=== PATIENT | male | born 1980 | race African-American/Black ===

== ENCOUNTER 2019-10-24 00:34 | Emergency (ER) | payer OTHER ==
[~2019-10-24] VITALS: Ht 165.1 cm; Wt 64.6 kg
[2019-10-24 01:23] LABS: BASO % 0.4 % (0.0-1.0); EOS # 0.1 10*3/uL (0.0-0.4); EOS % 0.9 % (1.0-4.0); HEMATOCRIT 29.1 % (42.0-52.0); LYMPH # 3.4 10*3/uL (1.3-4.4); LYMPH % 33.4 % (27.0-41.0); MEAN CELL VOLUME 92.7 fl (80.0-94.0); MEAN CORPUSCULAR HGB 27.7 pg (27.0-31.0); MEAN CORPUSCULAR HGB CONC 29.9 g/dl (33.0-37.0); MEAN PLATELET VOLUME 8.8 fl (9.6-12.3); MONO # 0.6 10*3/uL (0.1-1.0); MONO % 5.4 % (3.0-9.0); NEUT # 5.9 10*3/uL (2.3-7.9); NEUT % 58.7 % (47.0-73.0); PLATELET COUNT AUTOMATED 414 10*3/uL (130-400); RED BLOOD COUNT 3.14 10*6/uL (4.50-5.90); RED CELL DISTRI WIDTH 14.7 % (0-14.5); WHITE BLOOD COUNT 10.1 10*3/uL (4.8-10.8)
[2019-10-24 01:33] LABS: ACT PARTIAL THROMBO TIME 23.4 SECONDS (20.0-32.1); INTERNATIONAL NORM RATIO 1.1 (2.0-3.5)
[2019-10-24 01:38] LABS: ALBUMIN 2.7 gm/dl (3.1-4.5); ALKALINE PHOSPHATASE 73 U/L (45-117); BUN 15 mg/dl (7-24); CHLORIDE 108 mmol/L (98-107); CREATININE 1.53 mg/dL (0.70-1.30); POTASSIUM 2.9 mmol/L (3.5-5.1); SGOT/AST 10 IU/L (3-35); SGPT/ALT 15 U/L (12-78); SODIUM 140 mmol/L (136-145); TOTAL PROTEIN 6.1 gm/dL (6.4-8.2)
== END 2019-10-24 01:10 | disposition short-term general hospital (02) ==
LOC: ED 00:34 → EDBD 00:38 → ED 00:38
PROVIDERS: Emergency Medicine Emergency Medical Services; Nurse Practitioner Family
DX: S21.109A Unspecified open wound of unspecified front wall of thorax without penetration into thoracic cavity, initial encounter (principal); W34.00XA Accidental discharge from unspecified firearms or gun, initial encounter; Y93.89 Activity, other specified; Y92.89 Other specified places as the place of occurrence of the external cause; Y99.8 Other external cause status

== ENCOUNTER 2019-12-23 11:36 | Inpatient (IN) | payer OTHER ==
[~2019-12-23] VITALS: Ht 170.2 cm; Wt 55.1 kg
[2019-12-23 12:02] VITALS: BP 131/84
[2019-12-23 14:57] LABS: BASO # 0.1 10*3/uL (0.0-0.1); BASO % 0.5 % (0.0-1.0); EOS # 0.3 10*3/uL (0.0-0.4); EOS % 2.9 % (1.0-4.0); HEMATOCRIT 42.1 % (42.0-52.0); LYMPH # 1.6 10*3/uL (1.3-4.4); LYMPH % 17.2 % (27.0-41.0); MEAN CELL VOLUME 91.7 fl (80.0-94.0); MEAN CORPUSCULAR HGB 27.5 pg (27.0-31.0); MEAN CORPUSCULAR HGB CONC 29.9 g/dl (33.0-37.0); MEAN PLATELET VOLUME 9.5 fl (9.6-12.3); MONO # 0.7 10*3/uL (0.1-1.0); MONO % 6.8 % (3.0-9.0); NEUT # 6.9 10*3/uL (2.3-7.9); NEUT % 72.3 % (47.0-73.0); PLATELET COUNT AUTOMATED 494 10*3/uL (130-400); RED BLOOD COUNT 4.59 10*6/uL (4.50-5.90); WHITE BLOOD COUNT 9.5 10*3/uL (4.8-10.8)
--- NOTE | 2019-12-23 15:06 | NUR ---
REPORT TO NIDIA SALINAS
[2019-12-23 15:15] LABS: URINE AMPHETAMINES < 1000 (1000ng/ml); URINE BARBITURATES < 200 (200ng/ml); URINE BENZODIAZEPINES < 200 (200ng/ml); URINE CANNABINOIDS (THC) < 50 (50ng/ml); URINE COCAINE < 300 (300ng/ml); URINE METHADONE < 300 (300ng/ml); URINE OPIATES < 300 (300ng/ml); URINE PHENCYCLIDINE < 25 (25ng/ml)
[2019-12-23 15:27] LABS: BILIRUBIN NEGATIVE (NEGATIVE); BLOOD NEGATIVE (NEGATIVE); CLARITY CLEAR (CLEAR); COLOR STRAW (YELLOW); GLUCOSE NEGATIVE (NEGATIVE); KETONE NEGATIVE (NEGATIVE); LEUKO ESTERASE NEGATIVE (NEGATIVE); NITRITE NEGATIVE (NEGATIVE); PH 6.5 (5.0-9.0); SPECIFIC GRAVITY 1.005 (1.005-1.030); UROBILINOGEN 0.2 E.U./dl (0.2-1.0)
[2019-12-23 15:28] LABS: EPITHELIAL CELLS 0-2
[2019-12-23 15:28] LABS: ALBUMIN 3.5 gm/dl (3.1-4.5); ALKALINE PHOSPHATASE 96 U/L (45-117); BUN 10 mg/dl (7-24); CHLORIDE 109 mmol/L (98-107); CREATININE 0.77 mg/dL (0.70-1.30); SGOT/AST 30 IU/L (3-35); SGPT/ALT 17 U/L (12-78); SODIUM 140 mmol/L (136-145); TOTAL PROTEIN 7.6 gm/dL (6.4-8.2)
--- NOTE | 2019-12-23 15:30 | NUR ---
PT RESTING IN BED NO SIGN OF DISTRESS
[2019-12-23 15:31] LABS: ACETAMINOPHEN (TYLENOL) < 5.0 ug/ml (10-30)
[2019-12-23 15:32] LABS: ETHYL ALCOHOL < 3.0 mg/dl (<3)
[2019-12-23 20:58] VITALS: BP 96/72
--- NOTE | 2019-12-23 20:58 | NUR ---
Time: 2057 A 39 year old male admitted to under services of MARIELLE TURNER DO. Pt. arrived via stretcher from ER. Chief complaint: opiate withdrawal/substance abuse. KEHINDE MARR
--- NOTE | 2019-12-23 21:20 | NUR ---
PATIENT HAD 1800 DOSE OF SUBUTEX THAT WAS NOT GIVEN IN ER. NOTIFIED PHARMACYJUNIOR TO REORDER SUBUTEX TO START AT 2200
[2019-12-24] VITALS: BP 136/84
--- NOTE | 2019-12-24 04:00 | NUR ---
PATIENT SLEEPING, RESPIRATIONS EASY, NON LABORED. NO SIGNS OF DISTRESS. WILL CONTINUE TO MONITOR.
[2019-12-24 08:00] VITALS: BP 115/73
--- NOTE | 2019-12-24 08:00 | NUR ---
IN TO ROOM. PATIENT ASLEEP BUT AWAKENED EASILY. NO STATED COMPLAINTS AT THIS TIME. DENIES PAIN, ANXIETY AND RESTLESSNESS. RESPIRATIONS ARE EASY AND REGULAR ON ROOM AIR. NO SOB NOTED AT REST. BED IN LOWEST LOCKED POSITION AND CALL LIGHT WITHIN REACH. WILL CONTINUE TO MONITOR.
--- NOTE | 2019-12-24 08:11 | NUR ---
PATIENT MEETSD [facility]. [facility] STAFF WILL FOLLOW UP WITH PATIENT CONCERNING HIS AFTERCARE PLAN. CELY LOTT B.A. TILE AND MARBLE INSTALLER
[2019-12-24 12:00] VITALS: BP 119/76
--- NOTE | 2019-12-24 13:05 | NUR ---
[facility] STAFF IN TO SEE PATIENT. PATIENT IS GOING TO FOLLOW UP WITH [facility] IN [place] FOR OUTPATIENT TREATMENT. CELY LOTT B.A. BOATBUILDER SUPERVISOR
[2019-12-24 16:00] VITALS: BP 116/73
[2019-12-24 20:00] VITALS: BP 115/72
--- NOTE | 2019-12-24 22:43 | NUR ---
PRN TRAZODONE PO GIVEN FOR COMPLAINTS OF INSOMNIA. WILL MONITOR FOR EFFECTIVNESS. CALL LIGHT WITHIH REACH
[2019-12-25] VITALS: BP 109/61
--- NOTE | 2019-12-25 | NUR ---
PATIENT SLEEPING, NO SIGNS OF DISTRESS. WILL CONTINUE TO MONITOR.
[2019-12-25 08:00] VITALS: BP 118/72
[2019-12-25 12:00] VITALS: BP 126/79
[2019-12-25 16:00] VITALS: BP 138/71
--- NOTE | 2019-12-25 17:07 | NUR ---
[facility] staff to see patient to confirm aftercare plan of outpatient treatment upon discharge at [facility]. Reymundo Colón M.A.Ed
--- NOTE | 2019-12-25 19:38 | NUR ---
MEDICATED WITH REQUIP FOR C/O RESTLESS LEGS.
[2019-12-25 20:00] VITALS: BP 106/68
--- NOTE | 2019-12-25 21:20 | NUR ---
MEDICATED WITH VISTARIL FOR C/O ANXIETY, ROBAXIN FOR C/O MUSCLE ACHES & TRAZODONE FOR SLEEP.
[2019-12-26] VITALS: BP 105/56
[2019-12-26 06:29] LABS: BASO # 0.1 10*3/uL (0.0-0.1); BASO % 0.7 % (0.0-1.0); EOS # 0.5 10*3/uL (0.0-0.4); EOS % 5.5 % (1.0-4.0); HEMATOCRIT 40.4 % (42.0-52.0); LYMPH # 2.2 10*3/uL (1.3-4.4); LYMPH % 24.7 % (27.0-41.0); MEAN CELL VOLUME 88.2 fl (80.0-94.0); MEAN CORPUSCULAR HGB 27.3 pg (27.0-31.0); MEAN CORPUSCULAR HGB CONC 30.9 g/dl (33.0-37.0); MONO # 0.9 10*3/uL (0.1-1.0); MONO % 10.5 % (3.0-9.0); NEUT # 5.2 10*3/uL (2.3-7.9); NEUT % 58.3 % (47.0-73.0); PLATELET COUNT AUTOMATED 434 10*3/uL (130-400); RED BLOOD COUNT 4.58 10*6/uL (4.50-5.90); RED CELL DISTRI WIDTH 13.7 % (0-14.5)
[2019-12-26 06:45] LABS: CREATININE 0.89 mg/dL (0.70-1.30)
[2019-12-26 08:00] VITALS: BP 108/61
--- NOTE | 2019-12-26 10:25 | NUR ---
PATIENT MEDICATED WITH PO VISTARIL, ROBAXIN AND REQUIP PER PRN ORDER FOR C/O ANXIETY, MUSCLE ACHES AND RESTLESS LEGS. WILL MONITOR EFFECTIVENESS.
[2019-12-26] MEDS ORDERED: ZOFRAN 4 MG ED2 TAB PO (10:48)
[2019-12-26] MEDS ORDERED: ATARAX,VISTARIL50 MG PO (10:48)
--- NOTE | 2019-12-26 11:25 | NUR ---
EARLIER MEDS EFFECTIVE PER PT. WILL CONTINUE TO MONITOR.
[2019-12-26 12:00] VITALS: BP 110/56
--- NOTE | 2019-12-26 13:22 | NUR ---
Discharge instructions reviewed with patient. Patient receptive and verbalizes understanding. Follow-up care arranged. Written instructions given to patient. LISA CRANDALL
== END 2019-12-26 13:22 | disposition home or self-care (01) | DRG 773 ==
LOC: ED 11:36 → 4E 16:28 → EDHOLD 16:28 → 4E 17:30
PROVIDERS: Physician Assistant; ADMIT Internal Medicine
DX: F11.23 Opioid dependence with withdrawal (principal); D64.9 Anemia, unspecified; D47.3 Essential (hemorrhagic) thrombocythemia; E87.8 Other disorders of electrolyte and fluid balance, not elsewhere classified; F17.210 Nicotine dependence, cigarettes, uncomplicated; Z71.6 Tobacco abuse counseling

== ENCOUNTER 2020-01-07 19:39 | Emergency (ER) | payer OTHER ==
[~2020-01-07] VITALS: Ht 170.1 cm; Wt 68.0 kg
[~2020-01-07 19:39] MED LIST: ATARAX,VISTARIL50 MG PO; ZOFRAN 4 MG ED2 TAB PO
== END 2020-01-07 20:45 | disposition home or self-care (01) ==
LOC: ED 19:39
DX: F11.23 Opioid dependence with withdrawal (principal)

== ENCOUNTER 2020-03-07 17:21 | Emergency (ER) | payer OTHER ==
[~2020-03-07] VITALS: Ht 167.6 cm; Wt 63.5 kg
[2020-03-07 18:04] LABS: BASO # 0.1 10*3/uL (0.0-0.1); BASO % 0.4 % (0.0-1.0); EOS # 0.1 10*3/uL (0.0-0.4); HEMATOCRIT 42.9 % (42.0-52.0); LYMPH # 1.6 10*3/uL (1.3-4.4); LYMPH % 11.9 % (27.0-41.0); MEAN CORPUSCULAR HGB 26.1 pg (27.0-31.0); MEAN CORPUSCULAR HGB CONC 31.5 g/dl (33.0-37.0); MEAN PLATELET VOLUME 8.7 fl (9.6-12.3); MONO # 0.4 10*3/uL (0.1-1.0); MONO % 2.7 % (3.0-9.0); NEUT # 11.5 10*3/uL (2.3-7.9); NEUT % 83.7 % (47.0-73.0); PLATELET COUNT AUTOMATED 407 10*3/uL (130-400); RED BLOOD COUNT 5.17 10*6/uL (4.50-5.90); RED CELL DISTRI WIDTH 15.5 % (0-14.5); WHITE BLOOD COUNT 13.7 10*3/uL (4.8-10.8)
[2020-03-07 18:20] LABS: ALBUMIN 3.6 gm/dl (3.1-4.5); ALKALINE PHOSPHATASE 126 U/L (45-117); BUN 19 mg/dl (7-24); CHLORIDE 107 mmol/L (98-107); CREATININE 1.14 mg/dL (0.70-1.30); ETHYL ALCOHOL < 3.0 mg/dl (<3); POTASSIUM 3.4 mmol/L (3.5-5.1); SGOT/AST 97 IU/L (3-35); SGPT/ALT 183 U/L (12-78); SODIUM 141 mmol/L (136-145); TOTAL PROTEIN 8.4 gm/dL (6.4-8.2)
== END 2020-03-07 18:22 | disposition home or self-care (01) ==
LOC: ED 17:21
PROVIDERS: Emergency Medicine
DX: F11.90 Opioid use, unspecified, uncomplicated (principal)

== ENCOUNTER 2020-03-08 12:08 | Inpatient (IN) | payer OTHER ==
[~2020-03-08] VITALS: Ht 167.6 cm; Wt 59.4 kg
[2020-03-08 12:22] VITALS: BP 123/79
[2020-03-08 12:55] LABS: BILIRUBIN Negative (Negative); BLOOD Negative (Negative); CLARITY Clear (Clear); COLOR Dark Yellow (Yellow); GLUCOSE Negative (Negative); KETONE Negative (Negative); LEUKO ESTERASE Negative (Negative); NITRITE Negative (Negative); SPECIFIC GRAVITY >= 1.030 (1.001-1.030)
[2020-03-08 13:03] LABS: URINE AMPHETAMINES > 1000 (1000ng/ml); URINE BARBITURATES < 200 (200ng/ml); URINE BENZODIAZEPINES > 200 (200ng/ml); URINE CANNABINOIDS (THC) > 50 (50ng/ml); URINE COCAINE > 300 (300ng/ml); URINE METHADONE < 300 (300ng/ml); URINE OPIATES < 300 (300ng/ml)
[2020-03-08 13:04] LABS: URINE PHENCYCLIDINE < 25 (25ng/ml)
[2020-03-08 13:05] LABS: BASO # 0.1 10*3/uL (0.0-0.1); BASO % 0.8 % (0.0-1.0); EOS # 0.2 10*3/uL (0.0-0.4); EOS % 2.2 % (1.0-4.0); LYMPH # 2.8 10*3/uL (1.3-4.4); LYMPH % 30.5 % (27.0-41.0); MEAN CORPUSCULAR HGB 25.9 pg (27.0-31.0); MEAN CORPUSCULAR HGB CONC 31.2 g/dl (33.0-37.0); MEAN PLATELET VOLUME 8.6 fl (9.6-12.3); MONO # 1.1 10*3/uL (0.1-1.0); MONO % 11.8 % (3.0-9.0); NEUT % 54.4 % (47.0-73.0); PLATELET COUNT AUTOMATED 384 10*3/uL (130-400); RED BLOOD COUNT 4.94 10*6/uL (4.50-5.90); RED CELL DISTRI WIDTH 15.8 % (0-14.5); WHITE BLOOD COUNT 9.2 10*3/uL (4.8-10.8)
[2020-03-08 13:07] LABS: BACTERIA TRACE; MUCOUS 3+
[2020-03-08 13:20] LABS: ALBUMIN 3.4 gm/dl (3.1-4.5); ALKALINE PHOSPHATASE 120 U/L (45-117); BUN 15 mg/dl (7-24); CHLORIDE 110 mmol/L (98-107); CREATININE 1.05 mg/dL (0.70-1.30); ETHYL ALCOHOL < 3.0 mg/dl (<3); POTASSIUM 3.4 mmol/L (3.5-5.1); SGOT/AST 87 IU/L (3-35); SGPT/ALT 176 U/L (12-78); SODIUM 144 mmol/L (136-145); TOTAL PROTEIN 8.2 gm/dL (6.4-8.2)
--- NOTE | 2020-03-08 16:36 | NUR ---
PATIENT MEETS [facility]. PATIENT REPORTS THAT HE WANTS TO FOLLOW UP WITH [facility] FOR HIS AFTERCARE PLAN. CELY LOTT B.A. PRINTER SLOTTER FEEDER
--- NOTE | 2020-03-08 17:29 | NUR ---
Time: 1729 A 39 year old MALE admitted to [facility] under services of SUNNY WELCH DO. Pt. arrived via stretcher from ER. Chief complaint: OPIATE WITHDRAWAL. JENS VERA
--- NOTE | 2020-03-08 19:07 | NUR ---
Transfer of care from [facility].
--- NOTE | 2020-03-08 19:47 | NUR ---
In to see pt at this time.Pt appears calm then got made when asked questions on how long he uses and what.Pt has compression stocking on right hand at this time and pt stated it was for swellling.Pt ate all of dinner and watching tv at this time.
[2020-03-08 19:48] VITALS: BP 108/70
--- NOTE | 2020-03-08 19:49 | NUR ---
Pt is alert and orientated and denies open wounds at this time.
[2020-03-08 20:05] VITALS: BP 118/73
--- NOTE | 2020-03-08 20:05 | NUR ---
Time: 2004 A 39 year old MALE admitted to under services of SUNNY WELCH DO. Pt. arrived via wheel chair from ER. Chief complaint: SUBSTANCE ABUSE WITHDRAWAL. MAVERICK MESA
--- NOTE | 2020-03-08 20:28 | NUR ---
PT DENIES TAKING ANY HOME MEDICATIONS.
--- NOTE | 2020-03-08 21:00 | NUR ---
PT STATES HE WILL PUT GOWN ON "LATER."
[2020-03-08 23:08] VITALS: BP 118/73; BP 135/76; BP 98/56
--- NOTE | 2020-03-09 06:05 | NUR ---
SCHEDULED SUBUTEX GIVEN PER ORDER. PT DENIES ANY OTHER NEEDS. WILL MONITOR. CALL LIGHT IN REACH.
--- NOTE | 2020-03-09 06:08 | NUR ---
PT STATES HE WILL PUT GOWN ON WHEN HE GETS UP.
[2020-03-09 06:39] LABS: BASO # 0.1 10*3/uL (0.0-0.1); BASO % 0.9 % (0.0-1.0); EOS # 0.4 10*3/uL (0.0-0.4); EOS % 4.7 % (1.0-4.0); HEMATOCRIT 40.9 % (42.0-52.0); LYMPH # 3.4 10*3/uL (1.3-4.4); LYMPH % 38.7 % (27.0-41.0); MEAN CELL VOLUME 83.8 fl (80.0-94.0); MEAN CORPUSCULAR HGB CONC 31.1 g/dl (33.0-37.0); MEAN PLATELET VOLUME 9.2 fl (9.6-12.3); MONO % 11.7 % (3.0-9.0); NEUT # 3.8 10*3/uL (2.3-7.9); NEUT % 43.8 % (47.0-73.0); PLATELET COUNT AUTOMATED 388 10*3/uL (130-400); RED BLOOD COUNT 4.88 10*6/uL (4.50-5.90); RED CELL DISTRI WIDTH 15.8 % (0-14.5); WHITE BLOOD COUNT 8.7 10*3/uL (4.8-10.8)
[2020-03-09 07:07] LABS: ALBUMIN 3.1 gm/dl (3.1-4.5); BUN 20 mg/dl (7-24); CHLORIDE 109 mmol/L (98-107); CREATININE 0.94 mg/dL (0.70-1.30); POTASSIUM 4.1 mmol/L (3.5-5.1); SGOT/AST 74 IU/L (3-35); SGPT/ALT 152 U/L (12-78); SODIUM 142 mmol/L (136-145)
[2020-03-09 07:08] LABS: ALKALINE PHOSPHATASE 116 U/L (45-117); TOTAL PROTEIN 7.4 gm/dL (6.4-8.2)
[2020-03-09 08:00] VITALS: BP 99/53
--- NOTE | 2020-03-09 11:36 | NUR ---
[facility] STAFF IN TO SEE PATIENT. PATIENT IS STILL WANTING TO FOLLOW TO FOLLOW UP WITH [facility] FOR HIS AFTERCARE PLAN. CELY LOTT B.A. GEOSPATIAL INFORMATION TECHNOLOGIST
--- NOTE | 2020-03-09 15:00 | NUR ---
TOOK OVER CARE OF PATIENT AT THIS TIME. PT ASLEEP IN BED WITH NO S/S OF DISTRESS NOTED. BED IS LOW, CALL LIGHT WITHIN REACH. WILL CONTINUE TO MONITOR.
--- NOTE | 2020-03-09 15:32 | NUR ---
24 HR CHART CHECK COMPLETE.
[2020-03-09 16:00] VITALS: BP 110/52
[2020-03-09 20:00] VITALS: BP 106/64
[2020-03-10] VITALS: BP 94/56
[2020-03-10 08:00] VITALS: BP 100/61
--- NOTE | 2020-03-10 11:38 | NUR ---
[facility] STAFF IN TO SEE PATIENT. [facility] STAFF WILL PROVIDE PATIENT WITH APPOINTMENT TIME FOR HIS AFTERCARE PLAN AT [facility]. CELY LOTT B.A. VINYL DIPPER
--- NOTE | 2020-03-10 13:04 | NUR ---
PT LEFT AMA
--- NOTE | 2020-03-10 13:06 | NUR ---
NOTIFIED NURSING HEAVY EQUIPMENT SUPERVISOR NOTIFIED
== END 2020-03-10 13:04 | disposition left against medical advice (07) | DRG 770 ==
LOC: ED 12:08 → EDHOLD 13:53 → 4E 13:53
PROVIDERS: Nurse Practitioner Family; Student in an Organized Health Care Education/Training Program; ADMIT Internal Medicine; ATTEND Internal Medicine
DX: F11.23 Opioid dependence with withdrawal (principal); F41.9 Anxiety disorder, unspecified; E87.6 Hypokalemia; G25.81 Restless legs syndrome; D64.9 Anemia, unspecified; R80.9 Proteinuria, unspecified; R74.01 Elevation of levels of liver transaminase levels; R73.9 Hyperglycemia, unspecified; Z53.29 Procedure and treatment not carried out because of patient's decision for other reasons; F12.10 Cannabis abuse, uncomplicated; R74.8 Abnormal levels of other serum enzymes; F17.210 Nicotine dependence, cigarettes, uncomplicated; F15.10 Other stimulant abuse, uncomplicated; F14.10 Cocaine abuse, uncomplicated; Z71.6 Tobacco abuse counseling; E83.41 Hypermagnesemia

== ENCOUNTER 2020-07-08 09:26 | Inpatient (IN) | payer OTHER ==
[~2020-07-08] VITALS: Ht 167.6 cm; Wt 55.8 kg
[2020-07-08 09:34] VITALS: BP 185/111
[2020-07-08 12:24] LABS: URINE AMPHETAMINES > 1000 (1000ng/ml); URINE BARBITURATES < 200 (200ng/ml); URINE BENZODIAZEPINES < 200 (200ng/ml); URINE CANNABINOIDS (THC) < 50 (50ng/ml); URINE COCAINE < 300 (300ng/ml); URINE METHADONE < 300 (300ng/ml); URINE OPIATES < 300 (300ng/ml)
[2020-07-08 12:26] LABS: URINE PHENCYCLIDINE < 25 (25ng/ml)
[2020-07-08 14:12] LABS: BASO # 0.1 10*3/uL (0.0-0.1); BASO % 0.5 % (0.0-1.0); EOS # 0.1 10*3/uL (0.0-0.4); EOS % 1.2 % (1.0-4.0); HEMATOCRIT 40.1 % (42.0-52.0); LYMPH # 1.8 10*3/uL (1.3-4.4); LYMPH % 19.4 % (27.0-41.0); MEAN CELL VOLUME 85.1 fl (80.0-94.0); MEAN CORPUSCULAR HGB 27.2 pg (27.0-31.0); MEAN CORPUSCULAR HGB CONC 31.9 g/dl (33.0-37.0); MEAN PLATELET VOLUME 9.5 fl (9.6-12.3); MONO # 0.7 10*3/uL (0.1-1.0); MONO % 7.3 % (3.0-9.0); NEUT # 6.8 10*3/uL (2.3-7.9); NEUT % 71.4 % (47.0-73.0); PLATELET COUNT AUTOMATED 427 10*3/uL (130-400); RED BLOOD COUNT 4.71 10*6/uL (4.50-5.90); RED CELL DISTRI WIDTH 13.7 % (0-14.5); WHITE BLOOD COUNT 9.5 10*3/uL (4.8-10.8)
[2020-07-08 14:52] LABS: ALBUMIN 3.5 gm/dl (3.1-4.5); ALKALINE PHOSPHATASE 120 U/L (45-117); BUN 10 mg/dl (7-24); CHLORIDE 103 mmol/L (98-107); CREATININE 0.73 mg/dL (0.70-1.30); POTASSIUM 3.8 mmol/L (3.5-5.1); SGOT/AST 37 IU/L (3-35); SGPT/ALT 58 U/L (12-78); SODIUM 138 mmol/L (136-145); TOTAL PROTEIN 8.3 gm/dL (6.4-8.2)
[2020-07-08 15:14] VITALS: BP 128/88
[2020-07-08 15:28] LABS: BILIRUBIN Negative (Negative); BLOOD Negative (Negative); CLARITY Clear (Clear); COLOR Yellow (Yellow); GLUCOSE Negative (Negative); KETONE Negative (Negative); LEUKO ESTERASE Negative (Negative); NITRITE Negative (Negative); PH 7.5 (4.5-8.0)
[2020-07-08 16:05] LABS: RBC 0-2 rbc/hpf (0-2); WBC 0-2 wbc/hpf (0-5)
[2020-07-08 17:05] VITALS: BP 122/95
[2020-07-08 20:00] VITALS: BP 138/98
[2020-07-09] VITALS: BP 125/87
[2020-07-09 04:00] VITALS: BP 130/97
[2020-07-09 08:00] VITALS: BP 116/91
[2020-07-09 12:00] VITALS: BP 121/86
[2020-07-09 16:00] VITALS: BP 107/79
[2020-07-09 20:00] VITALS: BP 111/77
[2020-07-10] VITALS: BP 107/84
[2020-07-10 08:00] VITALS: BP 120/68
[2020-07-10 12:00] VITALS: BP 126/73
[2020-07-10 16:00] VITALS: BP 118/90
[2020-07-10 20:00] VITALS: BP 116/80
[2020-07-11] VITALS: BP 118/77
[2020-07-11 06:35] LABS: HEMATOCRIT 43.4 % (42.0-52.0); MEAN CELL VOLUME 86.1 fl (80.0-94.0); MEAN CORPUSCULAR HGB CONC 31.3 g/dl (33.0-37.0); MEAN PLATELET VOLUME 9.2 fl (9.6-12.3); PLATELET COUNT AUTOMATED 496 10*3/uL (130-400); RED BLOOD COUNT 5.04 10*6/uL (4.50-5.90); RED CELL DISTRI WIDTH 13.9 % (0-14.5); WHITE BLOOD COUNT 9.8 10*3/uL (4.8-10.8)
[2020-07-11 07:01] LABS: CREATININE 0.82 mg/dL (0.70-1.30)
[2020-07-11 07:30] LABS: ATYPICAL LYMPHS 1 % (0-0); PLATELET SUFFICIENCY HIGH (NORMAL); TOTAL CELLS COUNTED 100 #CELLS
[2020-07-11 08:00] VITALS: BP 124/80
[2020-07-11] MEDS ORDERED: ATARAX,VISTARIL50 MG PO (12:07)
== END 2020-07-11 12:26 | disposition home or self-care (01) | DRG 773 ==
LOC: ED 09:26 → EDHOLD 13:04 → 5E 13:04
PROVIDERS: Internal Medicine; ADMIT Family Medicine; ATTEND Family Medicine
DX: F11.23 Opioid dependence with withdrawal (principal); F41.9 Anxiety disorder, unspecified; I16.0 Hypertensive urgency; F17.210 Nicotine dependence, cigarettes, uncomplicated; Z20.822 Contact with and (suspected) exposure to COVID-19; D64.9 Anemia, unspecified; F15.10 Other stimulant abuse, uncomplicated; D47.3 Essential (hemorrhagic) thrombocythemia

== ENCOUNTER 2022-04-06 17:14 | Emergency (ER) | payer OTHER | END 2022-04-06 19:20 | disposition left against medical advice (07) | LOC: ED 17:14 | DX: Z53.21 Procedure and treatment not carried out due to patient leaving prior to being seen by health care provider (principal) ==